=== PATIENT | female | born 1980 | race African-American/Black ===

== ENCOUNTER 2016-12-01 12:24 | Emergency (ER) | payer OTHER ==
[~2016-12-01] VITALS: Ht 167.6 cm; Wt 72.6 kg
[~2016-12-01 12:24] MED LIST: AMOXICILLIN500 MG ORAL; NKM; ONDANSETRON ODT4 MG ORAL; PREDNISONE20 MG ORAL; PRENATA CHEWAB1 EACH ORAL
[2016-12-01 12:50] VITALS: BP 113/66
[2016-12-01] MEDS ORDERED: Ketorolac 30mg Inj IM ONE (13:00)
--- NOTE | 2016-12-01 13:04 | Emergency Room Report ---
History of Present Illness General Chief Complaint: Flu Like Symptoms Source: Patient Present Illness [facility] The patient is a 36-year-old female who denies any medical history presenting with myalgia, subjective fever, sore throat, dry cough x 2 days. The pt also admits to pain with swallowing. Pt denies N, V, dizziness, night sweats, fatigue Allergies: Coded Allergies: No Known Allergies (Unverified , 04/09/13) Patient History Past Medical History: see triage record Pertinent Family History: none Last Menstrual Period: 11/12/2016 : 3 Para: 3 Reviewed Nursing Documentation: PMH: Agreed, PSxH: Agreed Nursing Documentation-PMH Past Medical History: No Stated History Hx Gastrointestinal Problems: Yes - UTI Review of Systems All Other Systems: negative except mentioned in HPI Physical Exam Vital Signs Date Time Temp Pulse Resp B/P Pulse Ox O2 Delivery O2 Flow Rate FiO2 12/01/16 12:30 100.0 93 16 113/66 99 Room Air Sp02 EP Interpretation: reviewed, normal General Appearance: no apparent distress, alert, GCS 15, non-toxic Head: normocephalic, atraumatic Eyes: bilateral eye PERRL, bilateral eye normal inspection ENT: hearing grossly normal, normal pharynx, no angioedema, normal voice, uvula midline, moist mucus membranes, tonsillar swelling, pharyngeal erythema, tonsillar exudate - R sided Neck: full range of motion, supple/symm/no masses Respiratory: chest non-tender, lungs clear, normal breath sounds, speaking full sentences Cardiovascular #1: regular rate, rhythm, no edema Cardiovascular #2: 2+ carotid (R), 2+ carotid (L), 2+ radial (R), 2+ radial (L) , 2+ dorsalis pedis (R), 2+ dorsalis pedis (L) Gastrointestinal: normal bowel sounds, non tender, soft, non-distended, no guarding, no rebound Rectal: deferred Genitourinary: normal inspection, no CVA tenderness Musculoskeletal: back normal, gait/station normal, normal range of motion, non- tender Neurologic: alert, oriented x3, responsive, motor strength/tone normal, sensory intact, speech normal Psychiatric: judgement/insight normal, memory normal, mood/affect normal, no suicidal/homicidal ideation Reflexes: 3+ bicep (R), 3+ bicep (L), 3+ tricep (R), 3+ tricep (L), 3+ knee (R) , 3+ knee (L) Skin: normal color, no rash, warm/dry, well hydrated Lymphatic: no adenopathy Medical Decision Making PA Attestation Dr. Vargas is my supervising physician. Patient management was discussed with my supervising physician Diagnostic Impression: Primary Impression: Pharyngitis, acute ER Course The patient is a 36-year-old female who denies any medical history presenting with myalgia, subjective fever, sore throat, dry cough x 2 days. PE: Temperature of 100.0F No apparent distress. No TTP over maxillary or frontal sinuses. Lungs CTA bilat. No wheezing. No accessory muscle use. Heart: RRR, no abnormal heart sounds Ears: external auditory canal clear. Non erythematous. Bilat TM intact. Cone of light present bilat. No bulging of TM. No serous fluid seen. no nasal D/C + anterior cervical lymphad + R sided tonsillar exudate and bilat edema. Uvula midline.Oropharynx is erythematous The patient is given Toradol for pain with good relief. The patient will be discharged home with a prescription for amoxicillin and will follow up with primary care physician. ER precautions are given Laboratory Tests Test 12/01/16 13:15 Urine Color Yellow Urine Appearance Slightly cloudy Urine pH 5 (4.5-8.0) Urine Specific [place] 1.025 (1.005-1.035) Urine Protein 2+ (NEGATIVE) H Urine Glucose (UA) Negative (NEGATIVE) Urine Ketones 3+ (NEGATIVE) H Urine Occult Blood 5+ (NEGATIVE) H Urine Nitrite Negative (NEGATIVE) Urine Bilirubin Negative (NEGATIVE) Urine Urobilinogen Normal MG/DL (0.0-1.0) Urine Leukocyte Esterase 1+ (NEGATIVE) H Urine RBC 5-10 /HPF (0 - 2) H Urine WBC 0-2 /HPF (0 - 2) Urine Squamous Epithelial Cells Few /LPF (NONE/OCC) Urine Bacteria Few /HPF (NONE) Urine HCG, Qualitative Negative Lab Results Impression Urinalysis unremarkable. Negative Last Vital Signs Date Time Temp Pulse Resp B/P Pulse Ox O2 Delivery O2 Flow Rate FiO2 12/01/16 12:30 100.0 93 16 113/66 99 Room Air Status: improved Disposition: HOME, SELF-CARE Condition: Improved Scripts Amoxicillin* (AMOXIL*) 500 Mg Capsule 500 MG ORAL Q12HR, #20 CAP Prov: WALI CUELLAR 12/01/16 Ibuprofen* (MOTRIN*) 600 Mg Tablet 600 MG ORAL Q8H Y for For Pain, #30 TAB 0 Refills Prov: WALI CUELLAR 12/01/16 WALI CUELLAR Dec 01, 2016 13:04
[2016-12-01 13:31] LABS: APPEARANCE,URINE SLIGHTLY CLOUDY; KETONES,URINE 3+ (NEGATIVE); LEUKOCYTE ESTERASE ,URINE 1+ (NEGATIVE); NITRITE,URINE NEGATIVE (NEGATIVE); PH,URINE 5 (4.5-8.0); PROTEIN,URINE 2+ (NEGATIVE); UROBILINOGEN,URINE NORMAL MG/DL (0.0-1.0)
[2016-12-01 13:45] LABS: BACTERIA,URINE FEW /HPF; SQUAMOUS EPITHELIAL CELL,UR FEW /LPF (NONE/OCC); WBC,URINE 0-2 /HPF (0 - 2)
[2016-12-01] MEDS ORDERED: IBUPROFEN600 MG ORAL (14:03)
[2016-12-01] MEDS ORDERED: AMOXICILLIN500 MG ORAL (14:03)
[2016-12-01 14:08] VITALS: BP 113/66
== END 2016-12-01 14:08 | disposition home or self-care (01) ==
LOC: EMR 13:18
DX: J02.9 Acute pharyngitis, unspecified (principal); Z87.440 Personal history of urinary (tract) infections
CPT/HCPCS: 81003; 81025; 96372; 99283; J1885

== ENCOUNTER 2017-04-24 16:46 | Emergency (ER) | payer OTHER ==
[~2017-04-24] VITALS: Ht 167.6 cm; Wt 63.5 kg
[~2017-04-24 16:46] MED LIST changes: +IBUPROFEN600 MG ORAL
[2017-04-24] MEDS ORDERED: Acetaminophen 500mg (ES) tab ORAL ONE (17:30)
[2017-04-24 17:37] LABS: APPEARANCE,URINE CLEAR; KETONES,URINE 1+ (NEGATIVE); LEUKOCYTE ESTERASE ,URINE 1+ (NEGATIVE); NITRITE,URINE NEGATIVE (NEGATIVE); PH,URINE 7 (4.5-8.0); PROTEIN,URINE NEGATIVE (NEGATIVE); UROBILINOGEN,URINE NORMAL MG/DL (0.0-1.0)
[2017-04-24 17:46] LABS: EOSINOPHILS % (AUTO) 0.3 % (0.0-3.0); LYMPHOCYTES % (AUTO) 8.4 % (20.0-45.0); MEAN CORPUSCULAR HEMOGLOBIN 31.7 PG (27.0-31.0); MEAN CORPUSCULAR VOLUME 91 FL (80-99); MEAN PLATELET VOLUME 5.9 FL (6.5-10.1); MONOCYTES % (AUTO) 7.8 % (1.0-10.0); NEUTROPHILS % (AUTO) 81.5 % (45.0-75.0); PLATELET COUNT 347 K/UL (150-450); RED BLOOD COUNT 3.84 M/UL (4.20-5.40); RED CELL DISTRIBUTION WIDTH 14.4 % (11.6-14.8); WHITE BLOOD COUNT 7.8 K/UL (4.8-10.8)
[2017-04-24 17:46] LABS: BACTERIA,URINE OCCASIONAL /HPF; SQUAMOUS EPITHELIAL CELL,UR FEW /LPF (NONE/OCC)
[2017-04-24 17:51] VITALS: BP 101/57
[2017-04-24 17:59] LABS: TROPONIN I < 0.30 ng/mL (<=0.30)
[2017-04-24 18:02] LABS: ALANINE AMINOTRANSFERASE 12 U/L (3-33); ALBUMIN/GLOBULIN RATIO 1.5 (1.0-2.7); ANION GAP 17 (5-15); ASPARTATE AMINO TRANSFERASE 18 U/L (5-40); CARBON DIOXIDE 26 mEQ/L (20-30); CHLORIDE 97 mEQ/L (98-107); CREATININE 0.7 mg/dL (0.5-0.9); GLOMERULAR FILTRATION RATE > 60 mL/min (>60); HEMOLYSIS 2; POTASSIUM 3.6 mEQ/L (3.4-4.9); SODIUM 140 mEQ/L (135-145); TOTAL PROTEIN 7.5 g/dL (6.6-8.7)
[2017-04-24 18:12] LABS: CKMB < 1.5 ng/mL (< 3.8)
[2017-04-24 18:52] VITALS: BP 102/53
[2017-04-24] MEDS ORDERED: TYLENOL EXTRA500 MG ORAL (19:20)
[2017-04-24 19:32] VITALS: BP 93/55
--- NOTE | 2017-04-24 20:29 | Emergency Room Report ---
History of Present Illness General Chief Complaint: Syncope Source: Patient Present Illness HPI 37-year-old female presents to ED status post syncopal episode. Patient states that at work today she felt dizzy and passed out while standing. landed on her buttock and possibly hit her head. Patient unclear whether she lost consciousness. Is here complaining of lower back pain secondary to fall. Pain is throbbing, 7/10, nonradiating. She denies any headache, dizziness. Denies chest pain or shortness of breath. Patient has similar syncopal episode last week while at home. Did not seek medical attention. States that when she has passed out in the past, it's when she is . Patient states she just received her period. Patient states she also has very poor appetite and is not eating well for the last several months. No other aggravating relieving factors. Denies any other associated symptoms Allergies: Coded Allergies: No Known Allergies (Unverified , 04/09/13) Patient History Past Medical History: none Past Surgical History: none Pertinent Family History: none Social History: Denies: alcohol use, drug use, smoking Last Menstrual Period: 04/24/17 Immunizations: UTD Reviewed Nursing Documentation: PMH: Agreed, PSxH: Agreed Nursing Documentation-PMH Past Medical History: No Stated History Hx Gastrointestinal Problems: Yes - UTI Review of Systems All Other Systems: negative except mentioned in HPI Physical Exam Vital Signs Date Time Temp Pulse Resp B/P Pulse Ox O2 Delivery O2 Flow Rate FiO2 04/24/17 16:53 100.0 93 16 121/73 99 Room Air Sp02 EP Interpretation: reviewed, normal General Appearance: no apparent distress, alert, GCS 15, non-toxic Head: normocephalic, atraumatic Eyes: bilateral eye PERRL, bilateral eye normal inspection ENT: hearing grossly normal, normal pharynx, no angioedema, normal voice Neck: full range of motion, supple/symm/no masses Respiratory: chest non-tender, lungs clear, normal breath sounds, speaking full sentences Cardiovascular #1: regular rate, rhythm, no edema Cardiovascular #2: 2+ carotid (R), 2+ carotid (L), 2+ radial (R), 2+ radial (L) , 2+ dorsalis pedis (R), 2+ dorsalis pedis (L) Gastrointestinal: normal bowel sounds, non tender, soft, non-distended, no guarding, no rebound Rectal: deferred Genitourinary: normal inspection, no CVA tenderness, vertebral tenderness Musculoskeletal: back normal, gait/station normal, normal range of motion, non- tender Neurologic: alert, oriented x3, responsive, motor strength/tone normal, sensory intact, speech normal Psychiatric: judgement/insight normal, memory normal, mood/affect normal, no suicidal/homicidal ideation Reflexes: 3+ bicep (R), 3+ bicep (L), 3+ tricep (R), 3+ tricep (L), 3+ knee (R) , 3+ knee (L) Skin: normal color, no rash, warm/dry, well hydrated Lymphatic: no adenopathy Medical Decision Making Diagnostic Impression: Primary Impression: Syncope Qualified Codes: R55 - Syncope and collapse Additional Impression: Back pain Qualified Codes: M54.5 - Low back pain ER Course Hospital Course 37-year-old female presents ED s/p syncopal episode. Complaining of back pain secondary to fall Differential diagnoses include: arrythmia, dehydration, intracranial bleed, seizure Clinical course Patient placed on stretcher. 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 After initial history and physical I ordered labs, EKG, chest Xray, IVFs, CT Brain, lumbar xray labs reviewed- no leukocytosis, Hb/Hct stable, electrolytes ok, troponins negative, Utox + THC CT Brain - unremarkable Chest x-ray- no acute process lumbar xray, unremarkable EKG - NSR, no acute changes given tylenol for pain Upon reassessment patient states she feels better wishes to go home. I discussed findings with the patient. THC use is a possible cause of syncope as well as the reduced appetite. Cardiac workup is negative however encouraged followup with PMD as outpatient. DMV form submitted I. I feel this is a highly complex case requiring extensive working including EKG/Rhythm strip, Xray/CT/US, Blood/urine lab work, repeat exams while in ED, and administration of strong opiates/narcotics for pain control, admission to hospital or close patient follow up. Diagnosis - syncope, back pain Stable and discharged to home with Rx tylenol. Followup with PMD. Return to ED if symptoms recur or worsen Labs Test 04/24/17 17:02 04/24/17 17:20 Urine Color Pale yellow Urine Appearance Clear Urine pH 7 (4.5-8.0) Urine Specific [place] 1.005 (1.005-1.035) Urine Protein Negative (NEGATIVE) Urine Glucose (UA) Negative (NEGATIVE) Urine Ketones 1+ (NEGATIVE) Urine Occult Blood 2+ (NEGATIVE) Urine Nitrite Negative (NEGATIVE) Urine Bilirubin Negative (NEGATIVE) Urine Urobilinogen Normal MG/DL (0.0-1.0) Urine Leukocyte Esterase 1+ (NEGATIVE) Urine RBC 2-4 /HPF (0 - 2) Urine WBC 5-10 /HPF (0 - 2) Urine Squamous Epithelial Cells Few /LPF (NONE/OCC) Urine Bacteria Occasional /HPF (NONE) Urine HCG, Qualitative Negative Urine Opiates Screen Negative (NEGATIVE) Urine Barbiturates Screen Negative (NEGATIVE) Phencyclidine (PCP) Screen Negative (NEGATIVE) Urine Amphetamines Screen Negative (NEGATIVE) Urine Benzodiazepines Screen Negative (NEGATIVE) Urine Cocaine Screen Negative (NEGATIVE) Urine Marijuana (THC) Screen Positive (NEGATIVE) White Blood Count 7.8 K/UL (4.8-10.8) Red Blood Count 3.84 M/UL (4.20-5.40) Hemoglobin 12.2 G/DL (12.0-16.0) Hematocrit 34.8 % (37.0-47.0) Mean Corpuscular Volume 91 FL (80-99) Mean Corpuscular Hemoglobin 31.7 PG (27.0-31.0) Mean Corpuscular Hemoglobin Concent 35.0 G/DL (32.0-36.0) Red Cell Distribution Width 14.4 % (11.6-14.8) Platelet Count 347 K/UL (150-450) Mean Platelet Volume 5.9 FL (6.5-10.1) Neutrophils (%) (Auto) 81.5 % (45.0-75.0) Lymphocytes (%) (Auto) 8.4 % (20.0-45.0) Monocytes (%) (Auto) 7.8 % (1.0-10.0) Eosinophils (%) (Auto) 0.3 % (0.0-3.0) Basophils (%) (Auto) 2.0 % (0.0-2.0) Sodium Level 140 mEQ/L (135-145) Potassium Level 3.6 mEQ/L (3.4-4.9) Chloride Level 97 mEQ/L (98-107) Carbon Dioxide Level 26 mEQ/L (20-30) Anion Gap 17 (5-15) Blood Urea Nitrogen 3 mg/dL (7-23) Creatinine 0.7 mg/dL (0.5-0.9) Estimat Glomerular Filtration Rate > 60 mL/min (>60) Glucose Level 92 mg/dL (74-106) Calcium Level 10.0 mg/dL (8.6-10.2) Total Bilirubin 0.8 mg/dL (0.0-1.2) Aspartate Amino Transf (AST/SGOT) 18 U/L (5-40) Alanine Aminotransferase (ALT/SGPT) 12 U/L (3-33) Alkaline Phosphatase 61 U/L (35-104) Total Creatine Kinase 80 U/L (26-140) Creatine Kinase MB < 1.5 ng/mL (< 3.8) Creatine Kinase MB Relative Index Troponin I < 0.30 ng/mL (<=0.30) Pro-B-Type Natriuretic Peptide 61 pg/mL (0-125) Total Protein 7.5 g/dL (6.6-8.7) Albumin 4.6 g/dL (3.5-5.2) Globulin 2.9 g/dL Albumin/Globulin Ratio 1.5 (1.0-2.7) Human Chorionic Gonadotropin, Quant < 1 mIU/mL EKG Diagnostic Results Rate: normal Rhythm: NSR ST Segments: no acute changes ASA given to the pt in ED: No Rhythm Strip Diag. Results EP Interpretation: yes Rhythm: NSR, no PVC's, no ectopy Chest X-Ray Diagnostic Results EP Interpretation: Yes Findings: no consolidation, no effusion, no pneumothorax, no acute cardiopulmonary disease Number of Views: 1 Other X-Ray Diagnostic Results Other X-Ray Diagnostic Results : X-Ray Ordered: Lumbar xray EP Interpretation: Yes Findings: no fractures, no dislocation, no soft tissue swelling Number of Views: 3 CT/MRI/US Diagnostic Results CT/MRI/US Diagnostic Results : Imaging Test Ordered: CT Head, Impression no acute process Last Vital Signs Date Time Temp Pulse Resp B/P Pulse Ox O2 Delivery O2 Flow Rate FiO2 04/24/17 19:32 89 20 93/55 100 Room Air 04/24/17 18:52 97.5 Status: improved Disposition: HOME, SELF-CARE Condition: Stable Scripts Acetaminophen* (TYLENOL EXTRA STRENGTH*) 500 Mg Tablet 500 MG ORAL Q8H Y for Prn Headache/Temp > 101, #30 TAB 0 Refills Prov: LARA KEITH M.D. 04/24/17 Departure Forms: Return to Work Return to Work Date: April 28, 2017 Work Restrictions: None Patient Instructions: LARA Mcpherson M.D. April 24, 2017 20:29
--- NOTE | 2017-04-25 10:14 | Diagnostic Imaging Report ---
Indication: Syncope Technique: Contiguous 5 mm thick transaxial imaging of the head obtained in a Siemens Sensation [address] scanner. Soft tissue and bone windows generated. Total Dose length Product (DLP): [address] Dose Index Volume (CTDIvol): 70.38 mGy Comparison: none Findings: The size and configuration of the cortical sulci, basal cisterns, and ventricles are within normal limits for age. There is no mass effect, midline shift, or edema identified. There is no evidence of acute hemorrhage or abnormal intra-axial or extra-axial fluid collections. The bones and soft tissues are unremarkable. Impression: No mass effect, edema or acute bleed. The CT scanner at [facility] is accredited by the [employer] and the scans are performed using dose optimization techniques as appropriate to a performed exam including Automatic Exposure control.
--- NOTE | 2017-04-25 10:25 | Diagnostic Imaging Report ---
Indication: Back pain Comparison: None Findings: 3 views of the lumbar spine were obtained. No acute fracture or malalignment is identified. Vertebral body heights and disk spaces are well maintained. Posterior elements are unremarkable. Impression: No acute findings.
--- NOTE | 2017-04-25 10:47 | Diagnostic Imaging Report ---
Indication: Chest Pain Comparison: None A single view chest radiograph was obtained. Findings: Cardiomediastinal appearance is within normal limits for age. Pulmonary vascularity is appropriate. The diaphragmatic contour is smooth and costophrenic angles are sharp. No pleural effusions are identified. The bones are unremarkable. Impression: No acute findings
== END 2017-04-24 19:45 | disposition home or self-care (01) ==
LOC: EMR 17:30
DX: R55 Syncope and collapse (principal); M54.5 Low back pain; R42 Dizziness and giddiness; Z87.440 Personal history of urinary (tract) infections
CPT/HCPCS: 36415; 70450; 71010; 72020; 80053; 80300; 81003; 81025; 82550; 82553; 82962; 83880; 84484; 84702; 85025; 93005; 96360

== ENCOUNTER 2019-09-02 19:21 | Emergency (ER) | payer OTHER ==
[~2019-09-02] VITALS: Ht 167.6 cm; Wt 65.8 kg
[~2019-09-02 19:21] MED LIST changes: +TYLENOL EXTRA500 MG ORAL
[2019-09-02 19:31] VITALS: BP 111/71
--- NOTE | 2019-09-02 19:31 | NUR ---
ED Nurse Note: Pt AAOx4, vss, with no acute distress. PT AMBULATED TO ED FROM HOME C/O COUGH X 2 WEEKS WITH FEVER. PT AFEBRILE AT TRIAGE. 98.2
--- NOTE | 2019-09-02 19:37 | Emergency Room Report ---
History of Present Illness General Chief Complaint: Flu Like Symptoms Source: Patient Present Illness HPI 39 YO Female presents to the ED c/o dry persistent cough, runny nose, 7/[address], wheezing and sick family members one of which is hospitalized x 2 weeks. pt. reports fevers and fatigue have resolved but she has a residual persistent cough and runny nose. UTD with vaccinations. Denies recent travel. Denies neck pain/stiffness, ear pain, swollen tender lymph nodes or blood in the sputum. Pt. denies CP, Palpitations or sudden onset of a BOYLE. OTC cough and cold medications are not helping. Allergies: Coded Allergies: No Known Allergies (Unverified , 04/09/13) Patient History Past Medical History: see triage record Past Surgical History: none Pertinent Family History: none Last Menstrual Period: 08/20/19 Now: No Reviewed Nursing Documentation: PMH: Agreed; PSxH: Agreed Nursing Documentation-PM Past Medical History: No Stated History Hx Gastrointestinal Problems: Yes - UTI Review of Systems All Other Systems: negative except mentioned in HPI Physical Exam Vital Signs Date Time Temp Pulse Resp B/P (MAP) Pulse Ox O2 Delivery O2 Flow Rate FiO2 09/02/19 19:22 98.2 87 16 111/71 (84) 96 Room Air Sp02 EP Interpretation: reviewed, normal General Appearance: no apparent distress, alert, GCS 15, non-toxic Head: normocephalic, atraumatic Eyes: bilateral eye normal inspection, bilateral eye PERRL ENT: hearing grossly normal, normal voice, TMs + canals normal, uvula midline, moist mucus membranes, nasal congestion, tonsillar swelling, pharyngeal erythema Neck: full range of motion, no meningismus Respiratory: chest non-tender, lungs clear, no respiratory distress, no accessory muscle use, speaking full sentences, wheezing - scant expiratory wheezes bilaterally Cardiovascular #1: regular rate, rhythm Musculoskeletal: back normal, gait/station normal, normal range of motion, non- tender Neurologic: alert, oriented x3, responsive, motor strength/tone normal, sensory intact, normal gait, speech normal, grossly normal Psychiatric: judgement/insight normal Skin: no rash Lymphatic: no adenopathy Medical Decision Making PA Attestation Dr. Thrasher is my supervising Physician whom patient management has been discussed with. Diagnostic Impression: Primary Impression: Upper respiratory infection, viral ER Course 39 YO Female presents to the ED c/o dry persistent cough, runny nose, 7/[address], wheezing and sick family members one of which is hospitalized x 2 weeks. pt. reports fevers and fatigue have resolved but she has a residual persistent cough and runny nose. UTD with vaccinations. Denies recent travel. Denies neck pain/stiffness, ear pain, swollen tender lymph nodes or blood in the sputum. Pt. denies CP, Palpitations or sudden onset of a BOYLE. OTC cough and cold medications are not helping. Ddx considered but are not limited to URI, pneumonia, PE, strep pharyngitis, meningitis. Vital signs: Pt. is afebrile, the remaining VS are WNL H&PE are most consistent with URI- no meningeal signs, oropharynx has some PND. no evidence of bacterial infection at this time. ORDERS: none required at this time, the diagnosis is clinical ED INTERVENTIONS: None required at this time. --PT. EDUCATION: Discussed antibiotic resistance with inappropriate prescribing of antibiotics for viral illnesses. Discussed signs and symptoms to indicate viral illness versus bacterial illness. DISCHARGE: At this time pt. is stable for d/c to home. Will provide printed patient care instructions, and any necessary prescriptions. Care plan and follow up instructions have been discussed with the patient prior to discharge. Last Vital Signs Date Time Temp Pulse Resp B/P (MAP) Pulse Ox O2 Delivery O2 Flow Rate FiO2 09/02/19 19:31 87 16 Room Air 09/02/19 19:31 98.2 111/71 96 Disposition: HOME, SELF-CARE Condition: Stable Scripts Desloratadine (DESLORATADINE) 5 Mg Tablet 5 MG PO DAILY, #10 TAB Prov: Missy Steen 09/02/19 Lidocaine HCl 2% Viscous (Lidocaine HCl 2% Viscous) 100 Ml Solution 15 ML ORAL QID, #220 ML Prov: Missy Steen 09/02/19 Benzonatate* (BENZONATATE*) 200 Mg Capsule 200 MG ORAL THREE TIMES A DAY, #30 PERLE Prov: Missy Steen 09/02/19 Albuterol Sulfate* (ALBUTEROL SULFATE MDI*) 8.5 Gm Hfa.aer.ad 2 PUFF INH Q3H, #1 INH 0 Refills Prov: Missy Steen 09/02/19 Codeine/Promethazine Hcl* (PROMETHAZINE-CODEINE SYRUP*) 118 Ml Syrup 5 ML ORAL Q6H PRN for For Cough, #120 ML 0 Refills Prov: Missy Steen 09/02/19 Patient Instructions: Upper Respiratory Infection, Adult, [id number] Additional Instructions: Take medications as directed. Follow up with a Primary Care Provider in 3-5 days, even if your symptoms have resolved. --Please review list of primary care clinics, if you do not already have a primary care provider Return sooner to ED if new symptoms occur, or current symptoms become worse. Do not drink alcohol, drive, or operate heavy machinery while taking Cough Syrup as this may cause drowsiness. - Please note that this Emergency Department Report was dictated using [employer]ior product integrity engineer technology software, occasionally this can lead to erroneous entry secondary to interpretation by the dictation equipment. Missy Steen Sep 02, 2019 19:37
[2019-09-02] MEDS ORDERED: DESLORATADINE5 MG PO (19:52)
[2019-09-02] MEDS ORDERED: LIDOCAINE VISC100 ML ORAL (19:52)
[2019-09-02] MEDS ORDERED: ALBUTEROL SULF8.5 GM INH (19:52)
[2019-09-02] MEDS ORDERED: BENZONATATE200 MG ORAL (19:52)
[2019-09-02] MEDS ORDERED: PROMETHAZINE-C118 M1 ORAL (19:52)
[2019-09-02 20:02] VITALS: BP 115/73
--- NOTE | 2019-09-02 20:02 | NUR ---
ER DISCHARGE NOTE: Patient is cleared to be discharged per ERMD, pt is aox4, on room air, with stable vital signs. pt was given dc and prescription instructions, pt was able to verbalize understanding, pt id band removed. pt is able to ambulate with steady gait. pt took all belongings.
== END 2019-09-02 20:02 | disposition home or self-care (01) ==
LOC: EMR 19:41
DX: J06.9 Acute upper respiratory infection, unspecified (principal); B97.89 Other viral agents as the cause of diseases classified elsewhere
CPT/HCPCS: 99283

== ENCOUNTER 2019-10-25 13:30 | Emergency (ER) | payer OTHER ==
[~2019-10-25] VITALS: Ht 167.6 cm; Wt 68.0 kg
[~2019-10-25 13:30] MED LIST changes: +ALBUTEROL SULF8.5 GM INH; +BENZONATATE200 MG ORAL; +DESLORATADINE5 MG PO; +LIDOCAINE VISC100 ML ORAL; +PROMETHAZINE-C118 M1 ORAL
--- NOTE | 2019-10-25 13:50 | Emergency Room Report ---
History of Present Illness General Chief Complaint: Upper Extremity Injury Source: Patient Present Illness HPI 39-year-old female, no past medical history no surgical history presents with right shoulder pain after lifting furniture 1 week prior to arrival, aggravated with movement alleviated with rest severity is moderate, intermittent, patient endorses a deep ache, patient presents for evaluation Allergies: Coded Allergies: No Known Allergies (Unverified , 04/09/13) Patient History Past Medical History: see triage record Last Menstrual Period: 10/01/19 Reviewed Nursing Documentation: PMH: Agreed; PSxH: Agreed Nursing Documentation-PMH Past Medical History: No Stated History Hx Gastrointestinal Problems: Yes - UTI Review of Systems All Other Systems: negative except mentioned in HPI Physical Exam Vital Signs Date Time Temp Pulse Resp B/P (MAP) Pulse Ox O2 Delivery O2 Flow Rate FiO2 10/25/19 13:41 98.8 89 15 108/67 (81) 96 Room Air General Appearance: well appearing, no apparent distress Head: normocephalic, atraumatic ENT: hearing grossly normal, normal voice Neck: full range of motion, supple Respiratory: no respiratory distress, speaking full sentences Musculoskeletal: other - Right upper externally: Range of motion of the right shoulder intact, tenderness to palpation along the sits muscles, patient with negative empty can, possible positive [place] test, 2+ radial pulses, sensation grossly intact, 5 out of 5 snowsport instructor strength Neurologic: alert, normal gait Psychiatric: mood/affect normal Skin: no rash Medical Decision Making Diagnostic Impression: Primary Impression: Right shoulder strain Qualified Codes: S46.911A - Strain of unspecified muscle, fascia and tendon at shoulder and upper arm level, right arm, initial encounter Additional Impression: Rotator cuff injury Qualified Codes: S46.001A - Unspecified injury of muscle(s) and tendon(s) of the rotator cuff of right shoulder, initial encounter ER Course 39-year-old female presents most likely with a shoulder cuff injury after lifting, neurovascular exam is unremarkable strength intact PT OT, work note disposition home with return precautions Last Vital Signs Date Time Temp Pulse Resp B/P (MAP) Pulse Ox O2 Delivery O2 Flow Rate FiO2 10/25/19 13:41 98.8 89 15 108/67 (81) 96 Room Air Disposition: HOME, SELF-CARE Condition: Stable Referrals: [facility] Departure Forms: Return to Work Return to Work Date: Oct 26, 2019 Work Restrictions: No Heavy Lifting Patient Instructions: Rotator Cuff Injury, Surgery for Rotator Cuff Tear With Rehab-[facility] Additional Instructions: The patient was provided with discharge instructions, notified to follow-up with a primary care doctor and or specialist in the next 24-48 hours, and to return to the ED if they have worsening of their symptoms. Please note that this report is being documented using DRAGON technology. This can lead to erroneous entry secondary to incorrect interpretation by the dictating instrument. Timur Morejon MD Oct 25, 2019 13:50
[2019-10-25] MEDS ORDERED: NAPROXEN250 MG ORAL (13:53)
[2019-10-25] MEDS ORDERED: Ketorolac 60mg Inj IM ONE (14:00)
[2019-10-25] MEDS ORDERED: Acetaminophen 500mg (ES) tab ORAL ONE (14:00)
--- NOTE | 2019-10-25 14:13 | NUR ---
ED Nurse Note: Pt walked into ED from home w/ c/o shooting pain R arm 09/08. Pt denies numbness/tingling. No acute distress at this time.
[2019-10-25 14:15] VITALS: BP 110/67
[2019-10-25 15:02] VITALS: BP 126/71
--- NOTE | 2019-10-25 15:04 | NUR ---
ED Nurse Note: Pt cleared by health care Provider for discharge. Patient verbalized improved pain level to 4/10. DC instructions/prescription was given and explained to pt and verbalized understanding of teachings. All medical deviecs such as ID band removed. Pt is AAO x4, ambulatory and left with all personal belongings.
== END 2019-10-25 15:00 | disposition home or self-care (01) ==
LOC: EMR 14:10
DX: S46.911A Strain of unspecified muscle, fascia and tendon at shoulder and upper arm level, right arm, initial encounter (principal); S46.001A Unspecified injury of muscle(s) and tendon(s) of the rotator cuff of right shoulder, initial encounter; X50.9XXA Other and unspecified overexertion or strenuous movements or postures, initial encounter; Y93.89 Activity, other specified; Y92.9 Unspecified place or not applicable
CPT/HCPCS: 81025; 96372; Z7502; 99283